=== PATIENT | female | born 1950 | race African-American/Black ===

== ENCOUNTER 2022-10-17 16:44 | Emergency (ER) | payer MEDICARE, MEDICAID ==
[~2022-10-17] VITALS: Ht 162.6 cm; Wt 107.0 kg
[2022-10-17] MEDS ORDERED: MORPHINE SULFATE 10 MG/ML CPJ IM ONE (17:30)
[2022-10-17 19:28] VITALS: BP 109/57
== END 2022-10-17 19:30 | disposition home or self-care (01) ==
LOC: ER 16:44
DX: Z93.1 Gastrostomy status (principal)
CPT/HCPCS: 96372; 99283; J2270

== ENCOUNTER 2023-06-09 02:31 | Emergency (ER) | payer MEDICARE, MEDICAID ==
[~2023-06-09] VITALS: Ht 167.6 cm; Wt 130.0 kg
[2023-06-09 02:34] VITALS: O2SAT 98
[2023-06-09] MEDS ORDERED: IBUPROFEN 600MG TABLET PO ONE (05:00)
[2023-06-09 11:37] VITALS: BP 133/65; PULSE 85; RESP 16; TEMP 97.8
== END 2023-06-09 11:39 | disposition home or self-care (01) ==
LOC: ER 02:31
DX: R51.9 Headache, unspecified (principal); I50.9 Heart failure, unspecified
CPT/HCPCS: 99284